=== PATIENT | male | born 1945 | race Hispanic/Latino ===

== ENCOUNTER 2018-05-17 13:11 | Emergency (ER) | payer MEDICARE, BC ==
[2018-05-17 13:32] VITALS: BMI 29.0
[2018-05-17 13:38] VITALS: RESP 18
[2018-05-17 15:49] LABS: BASO # 0.1 K/uL (0.0-0.2); BASO % 1.2 % (0.0-2.0); EOS # 0.1 K/uL (0.0-0.7); HEMOGLOBIN 13.9 g/dL (12.0-18.0); LYMPH # 1.4 K/uL (1.0-4.3); LYMPH % 19.4 % (20.0-40.0); MEAN CELL VOLUME 91.2 fL (80.0-94.0); MEAN CORPUSCULAR HEMOGLOBIN 30.5 pg (27.0-31.0); MEAN CORPUSCULAR HGB CONC 33.5 g/dL (33.0-37.0); MEAN PLATELET VOLUME 8.9 fL (7.2-11.7); MONO # 0.7 K/uL (0.0-0.8); MONO % 9.6 % (0.0-10.0); NEUT # 4.9 K/uL (1.8-7.0); NEUT % 67.8 % (50.0-75.0); NRBC % 0.1 % (0.0-2.0); RBC 4.56 Mil/uL (4.40-5.90); RED CELL DISTRIBUTION WIDTH 15.6 % (11.5-14.5); WHITE BLOOD COUNT 7.2 K/uL (4.8-10.8)
[2018-05-17 16:02] LABS: ALB/GLOB RATIO 1.7 (1.0-2.1); ALBUMIN 4.4 g/dL (3.5-5.0); CALCIUM 9.4 mg/dl (8.6-10.4)
[2018-05-17 16:15] LABS: TROPONIN I 0.017 ng/mL (0.00-0.120)
[2018-05-17] MEDS ORDERED: Iodixanol 320 mg/ml 150 ml Bottle IV ONE (16:44)
[2018-05-17 17:24] VITALS: BP 152/80; PULSE 62; TEMP 99; O2SAT 97
--- NOTE | 2018-05-17 17:33 | CT ---
Date of service: 05/17/2018 PROCEDURE: CT Chest with contrast (Pulmonary Angiogram) HISTORY: SOB r/o PE COMPARISON: No prior study available for comparison TECHNIQUE: Axial computed tomography images were obtained of the chest in the pulmonary arterial phase of enhancement. Coronal and sagittal reformatted images were created and reviewed. Intravenous contrast dose: Radiation dose: Total exam DLP = 548.28 mGy-cm. This CT exam was performed using one or more of the following dose reduction techniques: Automated exposure control, adjustment of the mA and/or kV according to patient size, and/or use of iterative reconstruction technique. FINDINGS: PULMONARY ARTERIES: Visualized pulmonary trunk, right and left main, lobar, segmental and proximal subsegmental branches of the pulmonary arteries are well opacified with no obvious filling defects seen to suggest acute central pulmonary embolus. Pulmonary trunk measures approximately 2.9 cm.. AORTA: No acute findings. No thoracic aortic aneurysm. Ascending thoracic aorta measures approximately 3.6 cm and descending thoracic aorta measures approximately 2.94 cm. Minimal aortic atherosclerotic calcification or mural plaque present. LUNGS: Centrilobular and panlobular emphysematous changes most severely affecting the upper lobes and superior segments of the lower lobes.. There is a small approximately 3.6 mm nodule left lung base best seen on axial series 4, image number 91 near the pleural surface along the lateral convexity. Small approximately 3.5 mm nodule superior aspect right lower lobe image number 70 with the vague nodular density seen in the anterior aspect right upper lobe image number 59. 2.6 mm nodule lateral aspect right lower lobe image number 83 minimal atelectasis right posterior sulcus.. Minor biapical pleural thickening and parenchymal scarring right right-side extending more inferiorly along the posterior pleural surface.. PLEURAL SPACES: Unremarkable. No effusion or pneumothorax. HEART: Heart size within range of normal. No significant pericardial effusion. LYMPH NODES: No no significant mediastinal or hilar adenopathy. Trachea is midline and patent with no large central endoluminal lesions. There is a small hiatal hernia. There are several small low-attenuation foci seen about the right and left lobes of the thyroid gland. Recommend follow-up thyroid ultrasound. The [place]ONES, CHEST WALL: Mild multilevel degenerative spondylosis of the thoracic spine. OTHER FINDINGS: Minor changes of bilateral gynecomastia. IMPRESSION: No evidence of acute central pulmonary embolus. Centrilobular and panlobular emphysematous changes as described. There are several small nodular densities seen in the right upper and lower lobes with another nodular density left lung base. Follow-up CT scan at 6 month interval recommended to assess stability. Minor biapical pleural thickening and parenchymal scarring. There are several small low-attenuation foci seen scattered throughout the right and left lobes of the thyroid gland; recommend follow-up thyroid ultrasound.
--- NOTE | 2018-05-17 18:04 | C.PDOC ---
History Of Present Illness 73 y/o male with history of DVT 3 years ago sent to ED to rule out DVT on left leg and with c/o sob for 1 year. Patient states he was suppose to start eliquis tomorrow by PMD. Patient denies fever, chills, chest pain, leg numbness or any other complaints at this time. Chief Complaint (Nursing): Medical Clearance History Per: Patient History/Exam Limitations: no limitations Onset/Duration Of Symptoms: Days Current Symptoms Are (Timing): Still Present Past Medical History Reviewed: Historical Data, Nursing Documentation, Vital Signs Vital Signs: Last Vital Signs Temp 99 F 05/17/18 17:22 Pulse 62 05/17/18 17:22 Resp 18 05/17/18 17:22 BP 152/80 H 05/17/18 17:22 Pulse Ox 97 05/17/18 17:22 - Medical History PMH: Anxiety, Arthritis, Bipolar Disorder, Depression, Fractures (total R hip replacement, L ankle), HTN, Chronic Kidney Disease Surgical History: No Surg Hx - [facility] GROUP PSYCHOTHERAPY (04/06/17) Family History: States: No Known Family Hx - Social History Hx Tobacco Use: No (1989) Hx Alcohol Use: No Hx Substance Use: No - Immunization History Hx Tetanus Toxoid Vaccination: Yes Hx Influenza Vaccination: Yes Hx Pneumococcal Vaccination: Yes Review Of Systems Constitutional: Negative for: Fever, Chills Cardiovascular: Negative for: Chest Pain Respiratory: Positive for: Shortness of Breath. 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 Disposition - Disposition Referrals: Randa Casiano MD [Medical Doctor] - Disposition: HOME/ ROUTINE Disposition Time: 17:35 Condition: GOOD Additional Instructions: ANGELICA RESENDEZ, thank you for letting us take care of you today. The emergency medical care you received today was directed at your acute symptoms. If you were prescribed any medication, please fill it and take as directed. It may take several days for your symptoms to resolve. Return to the Emergency Department if your symptoms worsen, do not improve, or if you have any other problems. Please contact your doctor or call one of the physicians/clinics you have been referred to that are listed on the Patient Visit Information form that is included in your discharge packet. Bring any paperwork you were given at discharge with you along with any medications you are taking to your follow up visit. Our treatment cannot replace ongoing medical care by a primary care provider outside of the emergency department. Thank you for allowing the [facility] team to be part of your care today. Follow up with your primary care doctor tomorrow for re-evaluation and further management. Instructions: How to Prevent Blood Clots Forms: [facility] (Italian) - Clinical Impression Clinical Impression: History of DVT (deep vein thrombosis) - Scribe Statement The provider has reviewed the documentation as recorded by the Tess Veloz All medical record entries made by the Scribe were at my direction and personally dictated by me. I have reviewed the chart and agree that the record accurately reflects my personal performance of the history, physical exam, medical decision making, and the department course for this patient. I have also personally directed, reviewed, and agree with the discharge instructions and disposition.
--- NOTE | 2018-05-18 12:05 | VASCLAB ---
Date of service: 05/17/2018 PROCEDURE: Lower Extremity Venous Duplex Exam. HISTORY: Leg swelling PRIORS: None. TECHNIQUE: Bilateral common femoral, femoral, popliteal and posterior tibial, peroneal and great saphenous veins were evaluated. Flow was assessed with color Doppler, compressibility, assessment of phasic flow and augmentation response. Report prepared by JESSICA London FINDINGS: RIGHT: 1. Common Femoral Vein: 1.1. Compressibility - Fully compressible: Thrombus - None : Flow - Phasic: Augmentation -Normal: Reflux - None. 2. Femoral Vein: 2.1. Compressibility - Fully compressible: Thrombus - None : Flow - Phasic: Augmentation -Normal: Reflux - Moderate 3.06s 3. Popliteal Vein: 3.1. Compressibility - Fully compressible: Thrombus - None : Flow - Phasic: Augmentation -Normal: Reflux - Severe >4.28s 4. Posterior Tibial Vein: 4.1. Compressibility - Fully compressible: Thrombus - None: Flow - Phasic: Augmentation -Normal: Reflux - None. 5. Peroneal Vein: 5.1. Compressibility - Fully compressible: Thrombus - None: Flow - Phasic: Augmentation -Normal: Reflux - None. 6. Great Saphenous Vein: 6.1. Compressibility - Fully compressible: Thrombus - None: Flow - Phasic: Augmentation - Normal: Reflux - None. LEFT: 1. Common Femoral Vein: 1.1. Compressibility - Fully compressible: Thrombus - None: Flow - Phasic: Augmentation -Normal: Reflux - None. 2. Femoral Vein: 2.1. Compressibility - Fully compressible: Thrombus - None: Flow - Phasic: Augmentation -Normal: Reflux - None. 3. Popliteal Vein: 3.1. Compressibility - Fully compressible: Thrombus - None : Flow - Phasic: Augmentation -Normal: Reflux - None. 4. Posterior Tibial Vein: 4.1. Compressibility - Fully compressible: Thrombus - None: Flow - Phasic: Augmentation -Normal: Reflux - None. 5. Peroneal Vein: 5.1. Compressibility - Fully compressible: Thrombus - None: Flow - Phasic: Augmentation -Normal: Reflux - None. 6. Great Saphenous Vein: 6.1. Compressibility - Fully compressible: Thrombus - None: Flow - Phasic: Augmentation - Normal: Reflux - None. OTHER FINDINGS: None. IMPRESSION: Right: No evidence of deep or superficial vein thrombosis of the right lower extremity. Valvular incompetence noted of the right side. Left: No evidence of deep or superficial vein thrombosis of the left lower extremity. Normal valve function noted of the left side.
== END 2018-05-17 17:58 | disposition home or self-care (01) ==
LOC: C.ER 13:11
DX: Z86.718 Personal history of other venous thrombosis and embolism (principal); I12.9 Hypertensive chronic kidney disease with stage 1 through stage 4 chronic kidney disease, or unspecified chronic kidney disease; N18.9 Chronic kidney disease, unspecified; Z96.641 Presence of right artificial hip joint
CPT/HCPCS: 71275; 80053; 84484; 85025; 93005; 93970; 99283; Q9967